=== PATIENT | male | born 1960 | race Two or more races ===

== ENCOUNTER → 2023-09-12 | Emergency (ER) | payer OTHER ==
[~2023-09-12] VITALS: Ht 167.6 cm; Wt 77.1 kg
[~2023-09-12] MED LIST: TENORMIN25 MG PO
== END | disposition home or self-care (01) ==
LOC: ER 19:34
DX: R21 Rash and other nonspecific skin eruption (principal)
CPT/HCPCS: 96372; 99284; J1100